=== PATIENT | female | born 1955 | race Caucasian/White ===

== ENCOUNTER 2016-12-05 07:02 | Day surgery (SDC) | payer MEDICARE ==
[2016-12-03 12:08] VITALS: BMI 33.9
[~2016-12-05 07:02] MED LIST: LACTATED RINGERS 1,000 ML IV SCH; LIDOCAINE 1% 20 ML VIAL (10MG/ML) FOR IV START INTRADERMA PRN
[2016-12-05] MEDS ORDERED: LACTATED RINGERS 1,000 ML IV ONE (07:07)
[2016-12-05 07:20] VITALS: TEMP 97.9
[2016-12-05 07:26] LABS: Glucose,Whole Blood 148 mg/dL (75-99)
[2016-12-05] MEDS ORDERED: LIDOCAINE 1% INJ 10MG/ML (20 ML MDV) ONE (07:39)
[2016-12-05] MEDS ORDERED: PROPOFOL 10 MG/ML 20 ML VIAL IV ONE (07:39)
[2016-12-05 07:57] VITALS: RESP 16
--- NOTE | 2016-12-05 07:57 | P.PCN ---
Date of Procedure: 12/05/16 Procedure(s) Performed: BRIEF HISTORY: Patient is a 61-year-old, pleasant, white female, scheduled for an upper endoscopy as a part of evaluation of severe heartburn, nausea and vomiting and excessive burping for the last 8 months duration. She was recently started on Prilosec 20 mg daily and symptoms and the symptoms are gradually improving. She is scheduled for an upper endoscopy to evaluate further. PROCEDURE PERFORMED: Esophagogastroduodenoscopy with biopsy. PREOPERATIVE DIAGNOSIS: Epigastric pain, heartburn and nausea vomiting of 8 months duration. IV sedation per anesthesia. PROCEDURE: After informed consent was obtained, the patient was brought into the endoscopy unit. IV sedation was administered by Anesthesia under continuous monitoring. Initially the Olympus GIF-140 video endoscope was inserted into the mouth. Esophagus intubated without any difficulty. It was gradually advanced into the stomach and duodenum and carefully examined. The bulb and the second part of the duodenum appeared normal. The scope at this time was withdrawn to the stomach, adequately insufflated with air, and upon careful examination, mucosa of the antrum had mild gastritis and biopsies were done from this area. The, body, cardia and the fundus appeared normal. The scope was then withdrawn into the esophagus. The GE junction was located at 39 cm from the incisors. There were 2 superficial erosions at the GE junction consistent with LA grade A reflux esophagitis and the patient tolerated the procedure well. IMPRESSION: 1. Mild antral gastritis. 2. LA grade A reflux esophagitis. RECOMMENDATIONS: The findings of this examination were discussed with the patient as well as his family. She was advised to continue with Prilosec 20 mg daily and continue to follow antireflux measures. She was briefly educated about diet modification.
[2016-12-05 08:11] VITALS: BP 134/77; PULSE 83
== END 2016-12-05 08:45 | disposition home or self-care (01) ==
LOC: ORWHC2ENDO 07:02
PROVIDERS: ATTEND Internal Medicine Gastroenterology
DX: K21.0 Gastro-esophageal reflux disease with esophagitis (principal); K29.50 Unspecified chronic gastritis without bleeding; I10 Essential (primary) hypertension; E78.5 Hyperlipidemia, unspecified; Z87.891 Personal history of nicotine dependence; E11.9 Type 2 diabetes mellitus without complications; Z79.4 Long term (current) use of insulin; Z79.84 Long term (current) use of oral hypoglycemic drugs; E07.9 Disorder of thyroid, unspecified; F39 Unspecified mood [affective] disorder; G35 Multiple sclerosis; Z79.899 Other long term (current) drug therapy; Z88.8 Allergy status to other drugs, medicaments and biological substances; Z91.09 Other allergy status, other than to drugs and biological substances
CPT/HCPCS: 88305; 88342; 43239; J2001; J2704

== ENCOUNTER 2017-03-29 12:09 | Emergency (ER) | payer MEDICARE ==
[2017-03-29 12:19] VITALS: PULSE 88; RESP 16; TEMP 98.8
[2017-03-29 12:32] VITALS: BP 141/84
--- NOTE | 2017-03-29 12:48 | ED ---
Recheck HPI - General Chief Complaint: Recheck/Abnormal Lab/Rx Stated Complaint: High Blood Pressure Time Seen by Provider: 03/29/17 12:30 Source: patient Mode of arrival: ambulatory Limitations: no limitations - History of Present Illness Initial Comments: This patient is a 62-year-old woman who presents to be evaluate for hypertension. She states this been going on for number weeks. She usually measures her blood pressure right when she takes her medication, and it has been running into the neighborhood of the 190s over 90s. The patient states she is not having any symptoms related to the blood pressure. She does have follow-up already established with her physician tomorrow. She states that she presents today because friends were concerned she could have a stroke related to her blood pressure. MD Complaint: other (Hypertension) -: week(s) Symptoms Since Prior Visit: no new symptoms Associated Symptoms: none - Related Data Home Medications Medication Instructions Recorded Confirmed Canagliflozin [Invokana] 300 mg PO DAILY 12/03/16 03/29/17 Cholecalciferol [Vitamin D3] 2,000 unit PO W/SUPPER 12/03/16 03/29/17 DULoxetine HCL [Cymbalta] 60 mg PO DAILY 12/03/16 03/29/17 Insulin Detemir [Levemir Flextouch] 65 units SQ HS 12/03/16 03/29/17 Insulin Lispro Protamin/Lispro 8 unit SQ AC-TID 12/03/16 03/29/17 [humaLOG Mix 75-25 Kwikpen] Levothyroxine Sodium [Synthroid] 50 mcg PO DAILY 12/03/16 03/29/17 Losartan/Hydrochlorothiazide 1 tab PO DAILY 12/03/16 03/29/17 [Losartan-Hctz 100-25 mg Tab] Omeprazole [PriLOSEC] 40 mg PO DAILY 12/03/16 03/29/17 Oxybutynin Chloride [Ditropan XL] 15 mg PO HS 12/03/16 03/29/17 Simvastatin [Zocor] 40 mg PO BID 12/03/16 03/29/17 Teriflunomide [Aubagio] 14 mg PO QAM 12/03/16 03/29/17 Varenicline [Chantix] 1 mg PO BID 12/03/16 03/29/17 Vitamin B Complex 1 cap PO DAILY 12/03/16 03/29/17 amLODIPine BESYLATE [Norvasc] 10 mg PO DAILY 12/03/16 03/29/17 cloNIDine HCL [Catapres] 0.1 mg PO DAILY 12/03/16 03/29/17 metFORMIN HCL [Glucophage] 1,000 mg PO AC-BID 12/03/16 03/29/17 sitaGLIPtin [Januvia] 100 mg PO DAILY 12/03/16 03/29/17 Metoprolol Succinate (ER) [Toprol 25 mg PO DAILY 03/29/17 03/29/17 Xl] SILVER sulfADIAZINE CREAM 1 applic TOPICAL BID 03/29/17 03/29/17 [Silvadene Cream] Allergies Allergy/AdvReac Type Severity Reaction Status Date / Time aspartame Allergy Severe Throat Verified 03/29/17 12:52 closing- Difficulty Breathing liraglutide [From Victoza] Allergy Severe Bleeding Verified 03/29/17 12:52 from Nose & Mouth, Vomiting Review of Systems ROS Statement: Those systems with pertinent positive or pertinent negative responses have been documented in the HPI. ROS Other: All systems not noted in ROS Statement are negative. Constitutional: Denies: fever, chills, weakness Eyes: Denies: vision change Respiratory: Denies: cough, dyspnea, wheezes Cardiovascular: Denies: chest pain, palpitations, dyspnea on exertion, orthopnea , edema, syncope, paroxysmal nocturnal dyspnea Gastrointestinal: Denies: abdominal pain, vomiting, diarrhea Musculoskeletal: Denies: back pain Neurological: Denies: headache, weakness, numbness, paresthesias, confusion Past Medical History Past Medical History: Diabetes Mellitus, GERD/Reflux, Hypertension, Sleep Apnea/ CPAP/BIPAP, Thyroid Disorder Additional Past Medical History / Comment(s): SEASONAL ALLERGIES /SINUSITIS, SLEEP APNEA (NO MACHINE), MULTIPLE SCLEROSIS- PROBLEMS WITH BALANCE-USES CANE OR WALKER PRN. , STATES SHE CAN ONLY STAND FOR 5 MINUTES., SCABS FROM SCRATCHING ON ARMS AND BACK, OVER ACTIVE BLADDER, History of Any Multi-Drug Resistant Organisms: None Reported Past Surgical History: Cholecystectomy, Hysterectomy, Tonsillectomy Additional Past Surgical History / Comment(s): PARTIAL HYSTERECTOMY Past Anesthesia/Blood Transfusion Reactions: Postoperative Nausea & Vomiting ( PONV) Past Psychological History: No Psychological Hx Reported Smoking Status: Current some day smoker Past Alcohol Use History: None Reported Past Drug Use History: None Reported - Past Family History Father Family Medical History: Cancer Additional Family Medical History / Comment(s): BONE AND PANCREATIC CANCER Sister(s) Family Medical History: Cancer General Exam Limitations: no limitations General appearance: alert, in no apparent distress Head exam: Present: atraumatic, normocephalic Eye exam: Present: normal appearance. Absent: scleral icterus, conjunctival injection Neck exam: Present: normal inspection Respiratory exam: Present: normal lung sounds bilaterally. Absent: respiratory distress, wheezes, rales, rhonchi, stridor Cardiovascular Exam: Present: regular rate, normal rhythm, normal heart sounds. Absent: systolic murmur, diastolic murmur, rubs, gallop GI/Abdominal exam: Present: soft. Absent: distended, tenderness, guarding, rebound Extremities exam: Present: normal inspection, normal capillary refill. Absent: pedal edema, calf tenderness Back exam: Present: normal inspection. Absent: CVA tenderness (R), CVA tenderness (L) Neurological exam: Present: alert Skin exam: Present: warm, dry, intact, normal color. Absent: rash Course Vital Signs 03/29/17 03/29/17 03/29/17 12:16 12:32 12:40 Temperature 98.8 F Pulse Rate 88 Respiratory 16 Rate Blood Pressure 163/85 141/84 O2 Sat by Pulse 94 L 98 Oximetry 03/29/17 12:52 Temperature 98.8 F Pulse Rate 88 Respiratory 16 Rate Blood Pressure 141/84 O2 Sat by Pulse 98 Oximetry Medical Decision Making - Medical Decision Making Patient with asymptomatic hypertension. She does have an already existing appointment with her physician tomorrow and this seems appropriate for changing her medical regimen. Discussed return parameters Disposition Clinical Impression: Hypertension Disposition: HOME SELF-CARE Condition: Good Instructions: Hypertension (ED) Referrals: Herbie Torrez MD [Primary Care Provider] - 1-2 days
== END 2017-03-29 13:04 | disposition home or self-care (01) ==
LOC: EC 12:09
DX: I10 Essential (primary) hypertension (principal); E11.9 Type 2 diabetes mellitus without complications; K21.9 Gastro-esophageal reflux disease without esophagitis; E07.9 Disorder of thyroid, unspecified; F17.200 Nicotine dependence, unspecified, uncomplicated; Z79.4 Long term (current) use of insulin; Z79.899 Other long term (current) drug therapy; Z88.8 Allergy status to other drugs, medicaments and biological substances
CPT/HCPCS: 99282

== ENCOUNTER 2022-05-14 06:56 | Day surgery (SDC) | payer MEDICARE ==
[2022-05-12 15:57] VITALS: BMI 41.6
[~2022-05-14 06:56] MED LIST changes: +LIDOCAINE 1% (10MG/ML) FOR IV START INTRADERMA PRN; -LIDOCAINE 1% 20 ML VIAL (10MG/ML) FOR IV START INTRADERMA PRN
[2022-05-14] MEDS ORDERED: LIDOCAINE 2% INJ 20 MG/ML (2 ML VIAL) ONE (07:58)
[2022-05-14] MEDS ORDERED: ONDANSETRON 4 MG/2 ML VIAL ONE (07:58)
[2022-05-14] MEDS ORDERED: PROPOFOL 10 MG/ML 20 ML VIAL IV ONE (07:58)
[2022-05-14 07:59] LABS: Glucose,Whole Blood 131 mg/dL (70-110)
[2022-05-14 08:00] VITALS: TEMP 97.3
--- NOTE | 2022-05-14 08:27 | P.PCN ---
Date of Procedure: 05/14/22 Procedure(s) Performed: Brief history: Patient is a pleasant 64-year-old white female scheduled for an elective upper endoscopy as well as colonoscopy as a part of evaluation of iron deficiency anemia. Procedure performed: Esophagogastroduodenoscopy with biopsy Colonoscopy Preoperative diagnosis: Iron deficiency anemia Anesthesia: MAC Procedure: After informed consent was obtained from the patient was brought into the endoscopy unit and IV sedation was administered by anesthesia under continuous monitoring. Initially upper endoscopy was done. The Olympus GF 160 video endoscope was inserted inserted into the mouth and esophagus intubated without any difficulty and was gradually advanced into the stomach and duodenum and carefully examined. The bulb and second part of the duodenum appeared normal. Biopsies were done from the duodenum to rule out celiac The scope was then withdrawn into the stomach adequately insufflated with air and upon careful examination the antrum had mild gastritis and biopsies were done from this area. The body, cardia and fundus appeared normal. The scope was then withdrawn into the esophagus. The GE junction was located at 40 cm to the incisors. It appeared regular with no erythema erosions or ulcerations. Rest of the esophagus appeared normal. Patient tolerated the procedure well. At this time the patient continued to remain sedation. Initial digital rectal examination was normal. Olympus CF 160 video colonoscope was then inserted into the rectum and gradually advanced to the cecum without any difficulty. Careful examination was performed as the scope was gradually being withdrawn. The prep was excellent. The cecum, ascending colon, transverse colon, descending colon, sigmoid colon and rectum appeared normal. Moderate sigmoid diverticulosis Retroflexion was performed in the rectum and no lesions were noted. Patient tolerated the procedure well. Impression: 1. Upper endoscopy revealed mild antral gastritis but no evidence of esophagitis or peptic ulcer disease 2. Colonoscopy revealed moderate sigmoid diverticulosis but no evidence of colitis or colorectal neoplasia her family. Recommendations: Findings of this examination were discussed with the patient as well as her family. She was advised to follow with the biopsy results. Recommend repeat screening colonoscopy in 10 years.
[2022-05-14 08:36] VITALS: BP 153/79; PULSE 102; RESP 14
== END 2022-05-14 09:20 | disposition home or self-care (01) ==
LOC: ORWHC2ENDO 06:56
PROVIDERS: ATTEND Internal Medicine Gastroenterology
DX: D50.9 Iron deficiency anemia, unspecified (principal); K29.50 Unspecified chronic gastritis without bleeding; K57.30 Diverticulosis of large intestine without perforation or abscess without bleeding
CPT/HCPCS: 88305; 45378; 43239; J2405; J2704; J2001

== ENCOUNTER 2022-07-05 04:06 | Emergency (ER) | payer MEDICARE ==
[2022-07-05 04:17] VITALS: RESP 18; TEMP 97.8
[2022-07-05] MEDS ORDERED: ACETAMINOPHEN TAB 500 MG TAB PO STA (04:33)
[2022-07-05] MEDS ORDERED: HYDROmorphone 1 MG/ML 1 ML SYRINGE IM STA (04:33)
[2022-07-05] MEDS ORDERED: IBUPROFEN 800 MG TAB PO STA (04:33)
--- NOTE | 2022-07-05 04:34 | ED ---
Lower Extremity Injury HPI - General Chief Complaint: Extremity Injury, Lower Stated Complaint: L leg pain Time Seen by Provider: 07/05/22 04:18 Source: patient, family, RN notes reviewed, old records reviewed Mode of arrival: wheelchair Limitations: no limitations - History of Present Illness Initial Comments: This is a 67-year-old female DF for evaluation she presents today for evaluation regards to severe left knee pain swelling decreased range of motion. This happened [place] a popping sound patient herself up out of chair, toilet. Patient was able to amply back to bed the pain persisted throughout the night. Patient presents today with decreased range of motion of that leg below she can bend and can straighten it is painful. MD Complaint: knee injury -: hour(s) Injury: Knee: Left Type of Injury: hyperextension, hyperflexion Place: home Severity: severe Severity scale (1-10): 8 Improves With: nothing Worsens With: weight bearing Context: other Associated Symptoms: snap/pop sensation, swelling Treatments Prior to Arrival: other (0) - Related Data Home Medications Medication Instructions Recorded Confirmed Cholecalciferol [Vitamin D3] 2,000 unit PO DAILY 12/03/16 05/14/22 DULoxetine HCL [Cymbalta] 60 mg PO DAILY 12/03/16 05/14/22 Levothyroxine Sodium [Synthroid] 50 mcg PO DAILY 12/03/16 05/14/22 Omeprazole [PriLOSEC] 40 mg PO HS 12/03/16 05/14/22 Oxybutynin Chloride [Ditropan XL] 15 mg PO HS 12/03/16 05/14/22 Simvastatin [Zocor] 40 mg PO BID-W/MEALS 12/03/16 05/14/22 Teriflunomide [Aubagio] 14 mg PO QAM 12/03/16 05/14/22 Vitamin B Complex 1 cap PO DAILY 12/03/16 05/14/22 amLODIPine BESYLATE [Norvasc] 10 mg PO DAILY 12/03/16 05/14/22 cloNIDine HCL [Catapres] 0.1 mg PO BID 12/03/16 05/14/22 metFORMIN HCL [Glucophage] 1,000 mg PO AC-BID 12/03/16 05/14/22 sitaGLIPtin [Januvia] 100 mg PO DAILY 12/03/16 05/14/22 Metoprolol Succinate (ER) [Toprol 25 mg PO HS 03/29/17 05/14/22 Xl] Empagliflozin [Jardiance] 25 mg PO DAILY 05/12/22 05/14/22 Ferrous Sulfate [Feosol] 325 mg PO BID 05/12/22 05/14/22 Fexofenadine/Pseudoephedrine 1 tab PO HS 05/12/22 05/14/22 [Nataliia-D 24 Hour Tablet] Insulin Degludec [Tresiba] 60 units SQ BID 05/12/22 05/14/22 Insulin NPH Hum/Reg Insulin Hm 20 units SQ TID 05/12/22 05/14/22 [Novolin 70-30 Flexpen] Losartan Potassium 100 mg PO DAILY 05/12/22 05/14/22 Semaglutide [Ozempic] 0.5 mg SQ WEEKLY 05/12/22 05/14/22 hydroCHLOROthiazide 25 mg PO DAILY 05/12/22 05/14/22 tiZANidine [Zanaflex] 4 mg PO HS 05/12/22 05/14/22 Allergies Allergy/AdvReac Type Severity Reaction Status Date / Time aspartame Allergy Severe Throat Verified 07/05/22 04:13 closing- Difficulty Breathing liraglutide [From Victoza] Allergy Severe Bleeding Verified 07/05/22 04:13 from Nose & Mouth, Vomiting fish oil AdvReac Rash/Hives Verified 07/05/22 04:13 Review of Systems ROS Statement: Those systems with pertinent positive or pertinent negative responses have been documented in the HPI. ROS Other: All systems not noted in ROS Statement are negative. Past Medical History Past Medical History: Diabetes Mellitus, GERD/Reflux, Hyperlipidemia, Hypertension, Osteoarthritis (OA), Sleep Apnea/CPAP/BIPAP, Thyroid Disorder Additional Past Medical History / Comment(s): SEASONAL ALLERGIES /SINUSITIS, SLEEP APNEA (NO MACHINE), MULTIPLE SCLEROSIS- states nerve damage in legs, brain lesions and thoracic spine lesions, swelling in legs, psoriasis, anemia , STATES SHE CAN ONLY STAND FOR 5 MINUTES., OVER ACTIVE BLADDER, History of Any Multi-Drug Resistant Organisms: None Reported Past Surgical History: Cholecystectomy, Hysterectomy, Tonsillectomy Additional Past Surgical History / Comment(s): PARTIAL HYSTERECTOMY Past Anesthesia/Blood Transfusion Reactions: Postoperative Nausea & Vomiting (PONV) Past Psychological History: No Psychological Hx Reported Smoking Status: Former smoker Past Alcohol Use History: Rare Past Drug Use History: None Reported - Past Family History Father Family Medical History: Cancer Additional Family Medical History / Comment(s): BONE AND PANCREATIC CANCER Sister(s) Family Medical History: Cancer General Exam - General Exam Comments Initial Comments: Left knee effusion Limitations: no limitations General appearance: alert, in no apparent distress Head exam: Present: atraumatic, normocephalic, normal inspection Eye exam: Present: normal appearance, PERRL, EOMI. Absent: scleral icterus, conjunctival injection, periorbital swelling ENT exam: Present: normal exam, mucous membranes moist Neck exam: Present: normal inspection. Absent: tenderness, meningismus, lymphadenopathy Respiratory exam: Present: normal lung sounds bilaterally. Absent: respiratory distress, wheezes, rales, rhonchi, stridor Cardiovascular Exam: Present: regular rate, normal rhythm, normal heart sounds. Absent: systolic murmur, diastolic murmur, rubs, gallop, clicks GI/Abdominal exam: Present: soft, normal bowel sounds. Absent: distended, tenderness, guarding, rebound, rigid Extremities exam: Present: normal inspection, full ROM, normal capillary refill. Absent: tenderness, pedal edema, joint swelling, calf tenderness Back exam: Present: normal inspection Neurological exam: Present: alert, oriented X3, CN II-XII intact Psychiatric exam: Present: normal affect, normal mood Skin exam: Present: warm, dry, intact, normal color. Absent: rash Course Vital Signs 07/05/22 04:13 Temperature 97.8 F Pulse Rate 107 H Respiratory 18 Rate Blood Pressure 153/78 O2 Sat by Pulse 94 L Oximetry - Reevaluation(s) Reevaluation #1: 07/05/22 05:06 Medical records reviewed Reevaluation #2: 07/05/22 05:06 Patient's pain is improved Reevaluation #3: 07/05/22 05:06 Patient informed of results and questions are answered Procedures - Orthopedic Splinting/Casting Injury #1 Side: left Lower Extremity Injury Location: knee Lower Extremity Immobilizer: knee immobilizer Medical Decision Making - Medical Decision Making 67 female DF for evaluation with injury to left knee likely ligament injury, patient has no bony abnormality can be discharged home - Radiology Data Radiology results: report reviewed (X-ray left knee is negative for acute disease), image reviewed Disposition Clinical Impression: Left knee sprain Disposition: HOME SELF-CARE Condition: Good Instructions (If sedation given, give patient instructions): Knee Sprain (ED) Is patient prescribed a controlled substance at d/c from ED?: No Referrals: Yohannes Torrez MD [REFERRING] - 1-2 days Royer Tatum MD [STAFF PHYSICIAN] - 1-2 days Time of Disposition: 05:05
--- NOTE | 2022-07-05 05:04 | XR ---
EXAMINATION TYPE: XR knee complete LT DATE OF EXAM: 07/05/2022 COMPARISON: NONE HISTORY: Pain TECHNIQUE: 3 views FINDINGS: There is minimal calcification of the medial meniscus. There is minor spurring of the media l femoral and tibial condyles. There is small joint effusion. There is no fracture nor dislocation. IMPRESSION: Minor osteoarthritis and chondrocalcinosis. No fracture.
[2022-07-05] MEDS ORDERED: IBUPROFEN 600 MG STARTER PACK 4 TAB BTL PO STA (05:08)
[2022-07-05] MEDS ORDERED: ACET/COD 300 MG/30 MG STARTER PACK 6 TAB BTL PO STA (05:08)
[2022-07-05 05:54] VITALS: BP 148/80; PULSE 92
== END 2022-07-05 05:41 | disposition home or self-care (01) ==
LOC: EC 04:06
DX: S83.92XA Sprain of unspecified site of left knee, initial encounter (principal); K21.9 Gastro-esophageal reflux disease without esophagitis; E78.5 Hyperlipidemia, unspecified; E11.9 Type 2 diabetes mellitus without complications; I10 Essential (primary) hypertension; M19.90 Unspecified osteoarthritis, unspecified site; G47.30 Sleep apnea, unspecified; E07.9 Disorder of thyroid, unspecified; Z79.83 Long term (current) use of bisphosphonates; Z79.899 Other long term (current) drug therapy; Z79.4 Long term (current) use of insulin; Z79.890 Hormone replacement therapy; Z91.02 Food additives allergy status; Z91.013 Allergy to seafood; Z79.84 Long term (current) use of oral hypoglycemic drugs; Z87.891 Personal history of nicotine dependence; X50.9XXA Other and unspecified overexertion or strenuous movements or postures, initial encounter; Y92.002 Bathroom of unspecified non-institutional (private) residence as the place of occurrence of the external cause
CPT/HCPCS: 99283; 96372; 29505; 73562; J1170

== ENCOUNTER → 2023-07-03 | Outpatient (CLI) | payer MEDICARE ==
--- NOTE | 2023-07-06 08:31 | MM ---
Reason for Exam: Screening (asymptomatic). Baseline mammogram. Patient History: Menarche at age 14. First Full-Term at age 21. Left ovary removed at age 50. Hysterectomy at age 42. Postmenopausal. Risk Values: Saige 5 year model risk: 1.2%. NCI Lifetime model risk: 4.4%. Prior Study Comparison: Patient's first Mammogram. No prior studies available for comparison. Tissue Density: There are scattered fibroglandular densities. Findings: Analyzed By CAD. Left: Asymmetry left breast CC view slightly lateral to 0.9 cm from nipple measuring 7.2 mm. Right: There is no suspicious group of microcalcifications or new suspicious mass. Overall Assessment: Incomplete: need additional imaging evaluation, BI-RAD 0 Management: Diagnostic Mammogram of the left breast. [facility] will attempt to contact patient to return for supplemental views and ultrasound if indicated. Patient should continue monthly self-breast exams. A clinical breast exam by your physician is recommended on an annual basis. This exam should not preclude additional follow-up of suspicious palpable abnormalities. Note on Saige scores and lifetime risk: 1. A Saige score greater than 3% is considered moderate risk. If this is the case, consider specialist referral to assess eligibility for a risk reducing agent. 2. If overall lifetime risk for the development of breast cancer is 20% or higher, the patient may qualify for future screening with alternating mammogram and breast MRI. Electronically signed and approved by: Omid Acosta DO
== END | disposition home or self-care (01) ==
LOC: RADMAMWWP 08:25
PROVIDERS: ATTEND Family Medicine
DX: Z12.31 Encounter for screening mammogram for malignant neoplasm of breast (principal); Z78.0 Asymptomatic menopausal state
CPT/HCPCS: 77063; 77067

== ENCOUNTER → 2023-07-10 | Outpatient (CLI) | payer MEDICARE ==
--- NOTE | 2023-07-10 08:47 | MM ---
Reason for Exam: Additional evaluation requested from abnormal screening. Last screening mammogram was performed less than 1 month ago. Patient History: Menarche at age 14. First Full-Term at age 21. Left ovary removed at age 50. Hysterectomy at age 42. Postmenopausal. Risk Values: Saige 5 year model risk: 1.2%. NCI Lifetime model risk: 4.4%. Prior Study Comparison: 07/03/2023 Bilateral MG 3D screening mammo w/cad, [facility]. Tissue Density: Left: There are scattered fibroglandular densities. Findings: Analyzed By CAD. There are 2 focal asymmetries left breast CC view measuring 11 mm and 9 mm and 20 mm and 37 mm respectively. These are in the lateral aspect on CC view. Overall Assessment: Incomplete: need additional imaging evaluation, BI-RAD 0 Management: Diagnostic Breast Ultrasound of the left breast. Results were given to the patient verbally at the time of exam. Patient should continue monthly self-breast exams. A clinical breast exam by your physician is recommended on an annual basis. This exam should not preclude additional follow-up of suspicious palpable abnormalities. Note on Saige scores and lifetime risk: 1. A Saige score greater than 3% is considered moderate risk. If this is the case, consider specialist referral to assess eligibility for a risk reducing agent. 2. If overall lifetime risk for the development of breast cancer is 20% or higher, the patient may qualify for future screening with alternating mammogram and breast MRI. Electronically signed and approved by: Omid Acosta DO
--- NOTE | 2023-07-10 09:37 | USB ---
Reason for Exam: Additional evaluation requested from abnormal screening. Patient History: Menarche at age 14. First Full-Term at age 21. Left ovary removed at age 50. Hysterectomy at age 42. Postmenopausal. Risk Values: Saige 5 year model risk: 1.2%. NCI Lifetime model risk: 4.4%. Technique: Method: Targeted. Prior Study Comparison: 07/03/2023 Bilateral MG 3D screening mammo w/cad, [facility]. Findings: The lateral section of the breast of the left breast, the axilla of the left breast and the retroareolar of the left breast were scanned. Technique utilized:US breast workup limited LT Image; Ultrasound imaging of: Area of concern, retroareolar region and axilla. There are 2 lesions are felt to correlate with mammography: * 1:00 1 cm the nipple measuring 5 mm. BIOPSY 1 * 12:00 2 cm from nipple measuring up to 6 mm BIOPSY 2 These are approximately 20 mm apart and correlate to mammography. Additional area which is not definitively correlate with findings on mammography at 5:00 2 cm nipple measuring 10 mm. No correlate on mammography. Overall Assessment: Suspicious, BI-RAD 4 Management: Ultrasound Core Biopsy of the left breast. Biopsy lesion at 1:00 and 12:00, follow up lesion at 5:00 with ultrasound in 6 months. A clinical breast exam by your physician is recommended on an annual basis and results should be correlated with mammographic findings. This exam should not preclude additional follow-up of suspicious palpable abnormalities. Results were given to the patient verbally at the time of exam. Electronically signed and approved by: Omid Acosta DO
== END | disposition home or self-care (01) ==
LOC: RADMAMWWP 08:23
PROVIDERS: ATTEND Family Medicine
DX: R92.322 Mammographic fibroglandular density, left breast (principal); R92.8 Other abnormal and inconclusive findings on diagnostic imaging of breast; Z78.0 Asymptomatic menopausal state
CPT/HCPCS: 77065; 76642; G0279; 77061

== ENCOUNTER → 2023-07-29 | Day surgery (SDC) | payer MEDICARE ==
--- NOTE | 2023-08-06 10:45 | MM ---
Reason for Exam: Post Procedure Mammogram. Last screening mammogram was performed less than 1 month ago. Patient History: Menarche at age 14. First Full-Term at age 21. Left ovary removed at age 50. Hysterectomy at age 42. Postmenopausal. Risk Values: Saige 5 year model risk: 1.2%. NCI Lifetime model risk: 4.4%. Prior Study Comparison: 07/03/2023 Bilateral MG 3D screening mammo w/cad, [facility]. 07/10/2023 Left US breast workup limited , [facility]. 07/10/2023 Left MG 3D work up w/cad , [facility]. Tissue Density: Left: There are scattered fibroglandular densities. Pathology Description: Location: 1 o'clock. Marker Left Behind. Cores: 2 Gauge: 12 Pathology Description: Location: 12 o'clock. Marker Left Behind. Cores: 3 Gauge: 12 The procedure of ultrasound guided core biopsy was explained to the patient. Benefits, alternatives, and risks were discussed. An informed consent was then obtained. The patient was placed in supine positioning for imaging and for the procedure. The overlying skin was prepped and draped in usual sterile fashion. Lidocaine buffered with bicarbonate was used as anesthetic into the skin and subcutaneous tissue up to areas of concern in the left breast at 12:00 as well as 1:00 periareolar regions. A aj was made with surgical scalpel. Under ultrasound guidance, a 12-gauge vacuum assisted biopsy gun device was used to obtain 4 core samples 12:00 position and 2 samples 1:00 position. One o'clock lesion could no longer be visualized and may have reflected a cluster of cysts.. Following this, a biopsy clips were left in lesion. The patient tolerated the procedure well without any immediate complication. The patient was kept in the radiology department for short stay after the procedure and then discharged home in stable condition. Postprocedure mammogram: The patient was transferred to mammography for physician ordered post procedure mammogram for clips placement verification. Impression: Successful, uncomplicated ultrasound guided core biopsy of area of concern in the left breast 2 sites of concern, full pathology results to follow. Pathology Results: Result: Benign, Fibroadenoma. A. LEFT BREAST, 12:00, BIOPSY: Sclerotic fibroadenoma. B. LEFT BREAST, 1:00, BIOPSY: Sclerotic fibroadenoma. Overall Assessment: Benign Assessment: MG diagnostic mammo LT wo CAD. - Left: Benign, BI-RAD 2. Management: Screening Mammogram of the left breast in 6 months. Electronically signed and approved by: Ziyad Estevez M.D. Radiologis
== END ==
LOC: RADUSWWP 12:53
PROVIDERS: ATTEND Family Medicine
DX: D24.2 Benign neoplasm of left breast (principal)
CPT/HCPCS: 88305; 77065; 19083; 19084; A4648